=== PATIENT | male | born 1965 | race Caucasian/White ===

== ENCOUNTER → 2024-08-13 | Outpatient (CLI) | payer BC ==
[2024-08-13 11:32] LABS: BASO # 0.06 K/mm3 (0.02-0.10); EOS # 0.36 K/mm3 (0.04-0.40); EOS % 4.8 % (0.0-4.0); HEMATOCRIT 46.4 % (42.0-52.0); HEMOGLOBIN 16.2 g/dL (13.5-18.0); LYMPH# 1.83 K/mm3 (1.50-4.00); MEAN CELL VOLUME 89 fl (78-100); MEAN CORPUSCULAR HEMOGLOBIN 31 pg (27-31); MEAN CORPUSCULAR HGB CONC 35 g/dL (33-37); MEAN PLATELET VOLUME 8.2 fl (7.4-10.4); MONO # 0.62 K/mm3 (0.20-0.80); NEU # 4.59 K/mm3 (1.40-6.50); PLATELET COUNT 275 K/mm3 (130-400); RED BLOOD COUNT 5.19 M/mm3 (4.20-5.60); RED CELL DISTRIBUTION WIDTH 11.5 % (11.5-14.5); WHITE BLOOD COUNT 7.5 K/mm3 (4.8-10.8)
[2024-08-13 11:41] LABS: ALBUMIN 4.5 g/dL (3.5-5.0)
[2024-08-13 11:42] LABS: SODIUM 139 mmol/L (136-145)
[2024-08-13 11:43] LABS: CALCIUM 9.2 mg/dL (8.3-10.5)
[2024-08-13 11:44] LABS: GLUCOSE 97 mg/dL (75-110); TOTAL PROTEIN 7.2 g/dL (6.4-8.3)
[2024-08-13 11:45] LABS: CARBON DIOXIDE 23 mmol/L (22-29)
[2024-08-13 11:46] LABS: TOTAL BILIRUBIN 0.5 mg/dL (0.2-1.2)
[2024-08-13 11:49] LABS: AST-SGOT 19 U/L (5-34)
[2024-08-13 11:51] LABS: ALT/SGPT 24 U/L (0-55)
== END ==
LOC: LAB 11:20
PROVIDERS: Internal Medicine
DX: R05.9 Cough, unspecified (principal); R50.9 Fever, unspecified